=== PATIENT | male | born 1950 | race Caucasian/White ===

== ENCOUNTER 2016-08-25 13:34 | Emergency (ER) | payer OTHER ==
[2016-08-25 13:44] VITALS: BP 150/89; TEMP 97.7; BMI 47.5
--- NOTE | 2016-08-25 14:15 | ED.PDOC ---
General ED Provider: Dr. APURVA ARCOS JR Chief Complaint: Toe Pain/Injury Stated Complaint: BENDING OVER TAKING OFF MY PANTS. LOST BALANCE, RIGHT SECOND AND THIRD TOE GOT CAUGHT ON A CHAIR. SEVERE PAIN AT THAT TIME. [End] LACERATION NOTED UNDER SECOND THIRD AND FOURTH TOE.[End]12:30 97.7 63 20 93% 150 /89 4/10 admits struck metal chair with foot Time Seen by Physician: 14:16 Mode of Arrival: Walk-In Information Source: Patient, Family Exam Limitations: No limitations Primary Care Provider: THEO [facility] Nursing and Triage Documentation Reviewed and Agree: No Review of Systems - Review Of Systems Constitutional: Reports: Weakness Eyes: Reports: No symptoms Ears, Nose, Mouth, Throat: Reports: No symptoms Respiratory: Reports: No symptoms Cardiac: Reports: No symptoms GI: Reports: No symptoms : Reports: No symptoms, Frequency Musculoskeletal: Reports: Muscle pain Skin: Reports: Lesions Neurological: Reports: Numbness Endocrine: Reports: No symptoms, Other (intentionally losing weight) Hematologic/Lymphatic: Reports: No symptoms All Other Systems: Other Past Medical History - Past Medical History Endocrine: Reports: DM 2 Cardiovascular: Reports: Hypertension Respiratory: Reports: Unknown Hematological: Reports: Unknown Gastrointestinal: Reports: Unknown Genitourinary: Reports: Unknown Neuro/Psych: Reports: Unknown Musculoskeletal: Reports: Arthritis Cancer: Reports: Unknown - Surgical History General Surgical History: Reports: Orthopedic (LEFT KNEE REPLACEMENT. HERNIA. htn dm ca arth), Hernia Repair - Family History Family History: Reports: Unknown - Social History Smoking Status: Former smoker, Chews tobacco Hx Substance Use: No Alcohol Screening: Occasionally - Immunizations Tetanus Shot up to Date: Yes Physical Exam - Physical Exam Appearance: Well-appearing, Obese Pain Distress: Moderate Neck: Supple Respiratory: Airway patent Skin: Warm, Dry (note fourth nail avulses without bleeding to 1/2- nailbed all nails in need of reduction), Normal color (laceration volar 345th toes) Neurological: Motor intact Psychiatric: Affect appropriate Critical Care Note - Critical Care Note Total Time (mins): 5 Course - Course Orders, Labs, Meds: Orders Category Date Time Status Wound care [ED WOUND CARE] .ONCE EMERGENCY 08/25/16 16:19 Active Diphth,Pertuss(Acell),Tet Vac [Boostrix] MEDS 08/25/16 16:17 Discontinued 0.5 ml IM .ONCE ONE Lidocaine HCl/Pf [Lidocaine 1 % Amp 5 ml (Sutures)] MEDS 08/25/16 14:24 Discontinued 10 ml SUBCUT ONCE STA TOE(S) MIN 2 VIEWS Stat RADS 08/25/16 14:16 Completed Medications Discontinued Medications Generic Name Dose Route Start Last Admin Trade Name Laureano PRN Reason Stop Dose Admin Diphtheria/Pertussis/Tetanus Vacc 0.5 ml 08/25/16 16:17 08/25/16 16:35 Boostrix IM 08/25/16 16:18 0.5 ml .ONCE ONE Administration Lidocaine HCl 10 ml 08/25/16 14:24 08/25/16 16:13 Lidocaine 1 % Amp 5 Ml (Sutures) SUBCUT 08/25/16 14:25 10 ml ONCE STA Administration Vital Signs: Temp Pulse Resp BP Pulse Ox 08/25/16 13:34 97.7 F 63 20 150/89 H 93 L Departure - Departure Time of Disposition: 16:15 Disposition: HOME SELF-CARE Discharge Problem: Laceration of toe of right foot Instructions: Laceration (ED), Care For Your Stitches (ED) Condition: Good Pt referred to PMD for follow-up: Yes Additional Instructions: elevate leg 2 hours twice day change bandage daily and if bleeds through recheck 4-5 days PMD sutures out in 7-10 days 7 sutures Prescriptions: Cephalexin [Keflex] 500 mg PO QID #28 capsule Allergies/Adverse Reactions: Allergies No Known Allergies Allergy (Unverified 08/25/16 14:07) Home Medications: Ambulatory Orders Allopurinol 100 mg PO DAILY 08/25/16 Atenolol 50 mg PO DAILY 08/25/16 Atorvastatin Calcium 20 ea PO DAILY 08/25/16 Cephalexin [Keflex] 500 mg PO QID #28 capsule 08/25/16 Enalapril Maleate 5 mg PO DAILY 08/25/16 Furosemide 20 mg PO DAILY 08/25/16 Glyburide 5 mg PO BID 08/25/16 Insulin Glargine,Hum.rec.anlog [Jinny Messina] 80 unit SQ BEDTIME 08/25/16 Metformin HCl [Glucophage] 500 mg PO TID 08/25/16 Sitagliptin Phosphate [Januvia] 100 ea PO DAILY 08/25/16
[2016-08-25] MEDS ORDERED: LIDOCAINE 1 % AMP 5 ML (SUTURES) SUBCUT STA (14:24)
--- NOTE | 2016-08-25 14:57 | DI ---
EXAM: Three views of the right toes. History: Trauma of the right third digit with laceration. Findings: No acute fracture or dislocation. Moderate narrowing of the first MTP joint with subchon dral sclerosis and osteophytes. Mild joint space narrowing seen elsewhere. Impression: 1. No acute osseous abnormality. 2. Moderate osteoarthritis of the first MTP joint.
[2016-08-25] MEDS ORDERED: BOOSTRIX IM ONE (16:17)
== END 2016-08-25 16:45 | disposition home or self-care (01) ==
LOC: ED 13:34
DX: S91.114A Laceration without foreign body of right lesser toe(s) without damage to nail, initial encounter (principal); W45.8XXA Other foreign body or object entering through skin, initial encounter; Z72.0 Tobacco use
CPT/HCPCS: 90471; 99283

== ENCOUNTER 2018-12-07 10:40 | Outpatient (CLI) | payer OTHER ==
--- NOTE | 2018-12-07 11:22 | US ---
EXAM: Left lower extremity venous Doppler History: Left lower extremity pain and edema. Technique: Multiple sonographic images through the left lower extremity were obtained. Color duplex Doppler was used to interrogate vascular flow. Findings: The left common femoral, greater saphenous, profunda, superficial femoral, popliteal, lexie flaca, posterior tibial and anterior tibial veins demonstrate spontaneous flow with normal compression and normal augmentation. Impression: No sonographic evidence for deep venous thrombosis.
== END 2018-12-07 10:41 | disposition home or self-care (01) ==
LOC: RAD 10:40
PROVIDERS: ATTEND Family Medicine
DX: M79.605 Pain in left leg (principal); R60.0 Localized edema; R50.9 Fever, unspecified